=== PATIENT | female | born 1940 | race Caucasian/White ===

== ENCOUNTER 2017-05-19 23:10 | Emergency (ER) | payer MEDICARE ==
[~2017-05-19] VITALS: Ht 165.1 cm; Wt 66.0 kg
[2017-05-19] MEDS ORDERED: aspirin 81mg tab.chew PO ONE (23:30)
[2017-05-19] MEDS ORDERED: clopidogrel 300mg tablet PO ONE (23:45)
[2017-05-19] MEDS ORDERED: clopidogrel 75mg tablet PO ONE (23:50)
[2017-05-19 23:57] LABS: BASOPHILS % (AUTO) 0.3 % (0-1); EOSINOPHILS # (AUTO) 0.1 X10'3 (0-0.9); EOSINOPHILS % (AUTO) 1.8 % (0-6); HEMATOCRIT 44.1 % (35.0-45.0); HEMOGLOBIN 14.9 g/dl (12.0-16.0); LYMPHOCYTES # (AUTO) 1.3 X10'3 (1.1-4.8); LYMPHOCYTES % (AUTO) 18.1 % (21-51); MEAN CORPUSCULAR HEMOGLOBIN 30.8 PG (27.0-31.0); MEAN CORPUSCULAR HGB CONC 33.8 % (33.0-36.5); MEAN CORPUSCULAR VOLUME 91.3 FL (78-98); MEAN PLATELET VOLUME 7.9 FL (7.4-10.4); MONOCYTES # (AUTO) 0.6 X10'3 (0-0.9); MONOCYTES % (AUTO) 8.9 % (2-12); NEUTROPHILS # (AUTO) 5.2 X10'3 (1.8-7.7); NEUTROPHILS % (AUTO) 70.9 % (42-75); PLATELET COUNT 161 X10'3 (140-440); RED BLOOD COUNT 4.83 X10'6 (4.20-5.60); RED CELL DISTRIBUTION WIDTH 14.4 % (11.5-14.5); WHITE BLOOD COUNT 7.3 X10'3 (4.5-11.0)
[2017-05-20 00:19] LABS: ALANINE AMINOTRANSFERASE 29 U/L (12-78); ALBUMIN 3.8 G/DL (3.4-5.0); ALBUMIN/GLOBULIN RATIO 1.2 (1.1-1.5); ALKALINE PHOSPHATASE 88 IU/L (46-116); ANION GAP 9 (8-16); ASPARTATE AMINO TRANSFERASE 17 U/L (10-37); BILIRUBIN,TOTAL 0.8 MG/DL (0.1-1.0); BLOOD UREA NITROGEN 25 MG/DL (7-18); BUN/CREATININE RATIO 20.8 (6.6-38.0); CALCIUM 8.7 MG/DL (8.5-10.1); CHLORIDE 107 MMOL/L (99-107); GLUCOSE 109 MG/DL (70-104); SODIUM 142 MMOL/L (135-145); TOTAL CARBON DIOXIDE 26.5 MMOL/L (24-32); TOTAL PROTEIN 6.9 G/DL (6.4-8.2); eGFR 44 ML/MIN
[2017-05-20] MEDS ORDERED: iohexol 300mg/ml 100ml inj. ONE (00:22)
[2017-05-20 01:54] LABS: CLARITY,URINE CLEAR (Clear); COLOR,URINE YELLOW (Yellow); GLUCOSE, URINE NEGATIVE (Neg); KETONES,URINE NEGATIVE (Neg); LEUKOCYTE ESTERASE ,URINE NEGATIVE (Neg); NITRITES, URINE NEGATIVE (Neg); OCCULT BLOOD,URINE MODERATE (Neg); PH,URINE 5.5 (4.8-8.0); PROTEIN,URINE NEGATIVE (Neg); UROBILINOGEN,URINE 0.2 E.U/dL (0.2-1.0)
[2017-05-20] MEDS ORDERED: ROBDML PO (01:58)
[2017-05-20] MEDS ORDERED: AZIT250T PO (01:58)
[2017-05-20 01:59] LABS: UA COLLECTION TYPE CLN CATCH MIDSTREAM
[2017-05-20 02:15] LABS: BACTERIA,URINE FEW /HPF (Neg); MUCUS STRANDS MODERATE /LPF (Neg); SQUAMOUS EPITHELIAL CELL,UR MODERATE /LPF (FEW); WBC,URINE 0-4 /HPF (0-4)
[2017-05-20 02:16] VITALS: BP 124/71
== END 2017-05-20 02:20 | disposition home or self-care (01) ==
LOC: ER 23:11
DX: J20.9 Acute bronchitis, unspecified (principal); K21.9 Gastro-esophageal reflux disease without esophagitis; Z87.891 Personal history of nicotine dependence; Z88.0 Allergy status to penicillin; Z88.2 Allergy status to sulfonamides; Z88.5 Allergy status to narcotic agent; Z88.1 Allergy status to other antibiotic agents; Z79.899 Other long term (current) drug therapy
CPT/HCPCS: 36415; 71045; 71250; 80053; 81001; 83605; 84484; 85025; 87040; 87502; 87503; 93005; 99285; J7030; Q9967

== ENCOUNTER 2017-11-28 20:32 | Emergency (ER) | payer MEDICARE ==
[~2017-11-28] VITALS: Ht 162.6 cm; Wt 66.4 kg
[~2017-11-28 20:32] MED LIST: AZIT250T PO; ROBDML PO
[2017-11-28 21:00] VITALS: BP 146/98
[2017-11-28] MEDS ORDERED: ESOM20CA PO (21:06)
[2017-11-28] MEDS ORDERED: acetaminophen 325mg tablet PO ONE ×2 (21:50)
[2017-11-28] MEDS ORDERED: ketorolac trometh inj. 60 MG/2 ML VIAL IM ONE (21:50)
[2017-11-28] MEDS ORDERED: LIDOcaine 1% 30ml preserv. free vial IJ ONE (22:05)
[2017-11-28] MEDS ORDERED: CYCL-1 PO (22:06)
[2017-11-28] MEDS ORDERED: LIDO700A32 TOP (22:06)
[2017-11-28] MEDS ORDERED: ACET-812 PO (22:06)
== END 2017-11-28 22:18 | disposition home or self-care (01) ==
LOC: ER 20:33
DX: M54.5 Low back pain (principal); G89.29 Other chronic pain; K21.9 Gastro-esophageal reflux disease without esophagitis; Z98.890 Other specified postprocedural states; Z88.0 Allergy status to penicillin; Z88.2 Allergy status to sulfonamides; Z88.5 Allergy status to narcotic agent; Z88.1 Allergy status to other antibiotic agents; Z88.8 Allergy status to other drugs, medicaments and biological substances; Z79.899 Other long term (current) drug therapy
CPT/HCPCS: 64450; 96372; 99284; J1885

== ENCOUNTER 2019-02-04 08:23 | Emergency (ER) | payer MEDICARE ==
[~2019-02-04] VITALS: Ht 165.1 cm; Wt 61.4 kg
[~2019-02-04 08:23] MED LIST changes: -AZIT250T PO; +CYCL-1 PO; +ESOM20CA PO; +LIDO700A32 TOP; -ROBDML PO
[2019-02-04] MEDS ORDERED: CYCL-1 PO (08:41)
[2019-02-04] MEDS ORDERED: orphenadrine citrate 60mg/2ml inj. IM ONE (08:45)
[2019-02-04 09:36] VITALS: BP 168/99
== END 2019-02-04 09:44 | disposition home or self-care (01) ==
LOC: ER 08:23
DX: M43.6 Torticollis (principal); M62.838 Other muscle spasm; K21.9 Gastro-esophageal reflux disease without esophagitis; G89.29 Other chronic pain; Z88.0 Allergy status to penicillin; Z88.2 Allergy status to sulfonamides; Z88.6 Allergy status to analgesic agent; Z88.8 Allergy status to other drugs, medicaments and biological substances; Z79.899 Other long term (current) drug therapy; Z98.890 Other specified postprocedural states
CPT/HCPCS: 96372; 99283; J2360

== ENCOUNTER 2019-02-05 01:36 | Emergency (ER) | payer MEDICARE ==
[~2019-02-05] VITALS: Ht 167.6 cm; Wt 62.6 kg
[2019-02-05 01:40] VITALS: BP 143/85
== END 2019-02-05 03:11 | disposition left against medical advice (07) ==
LOC: ER 01:36
DX: M54.2 Cervicalgia (principal); Z53.21 Procedure and treatment not carried out due to patient leaving prior to being seen by health care provider

== ENCOUNTER 2019-03-13 13:22 | Emergency (ER) | payer MEDICARE ==
[~2019-03-13] VITALS: Ht 165.1 cm; Wt 61.4 kg
[2019-03-13 13:55] LABS: BASOPHILS % (AUTO) 0.7 % (0-1); EOSINOPHILS # (AUTO) 0.2 X10'3 (0-0.9); EOSINOPHILS % (AUTO) 3.7 % (0-6); HEMATOCRIT 42.7 % (35.0-45.0); HEMOGLOBIN 14.2 g/dl (12.0-16.0); LYMPHOCYTES # (AUTO) 1.9 X10'3 (1.1-4.8); LYMPHOCYTES % (AUTO) 30.5 % (21-51); MEAN CORPUSCULAR HGB CONC 33.3 g/dL (33.0-36.5); MEAN CORPUSCULAR VOLUME 89.9 FL (78-98); MEAN PLATELET VOLUME 8.5 FL (7.4-10.4); MONOCYTES # (AUTO) 0.4 X10'3 (0-0.9); MONOCYTES % (AUTO) 6.2 % (2-12); NEUTROPHILS # (AUTO) 3.6 X10'3 (1.8-7.7); NEUTROPHILS % (AUTO) 58.9 % (42-75); PLATELET COUNT 208 X10'3 (140-440); RED BLOOD COUNT 4.76 X10'6 (4.20-5.60); RED CELL DISTRIBUTION WIDTH 13.8 % (11.5-14.5); WHITE BLOOD COUNT 6.1 X10'3 (4.5-11.0)
[2019-03-13 14:11] LABS: ALANINE AMINOTRANSFERASE 14 U/L (12-78); ALBUMIN 3.8 G/DL (3.4-5.0); ALBUMIN/GLOBULIN RATIO 1.3 (1.1-1.5); ALKALINE PHOSPHATASE 93 IU/L (46-116); ANION GAP 10 (8-16); ASPARTATE AMINO TRANSFERASE 20 U/L (10-37); BILIRUBIN,TOTAL 0.8 MG/DL (0.1-1.0); BLOOD UREA NITROGEN 16 MG/DL (7-18); BUN/CREATININE RATIO 17.4 (6.6-38.0); CALCIUM 8.5 MG/DL (8.5-10.1); CHLORIDE 106 MMOL/L (99-107); CREATININE 0.92 MG/DL (0.40-0.90); GLUCOSE 127 MG/DL (70-104); POTASSIUM 3.6 MMOL/L (3.5-5.1); SODIUM 139 MMOL/L (135-145); TOTAL CARBON DIOXIDE 22.7 MMOL/L (24-32); TOTAL PROTEIN 6.8 G/DL (6.4-8.2); eGFR 59 ML/MIN
--- NOTE | 2019-03-13 14:42 | NUR ---
PATIENT STATES "I FEEL GREAT, I DON'T NEED TO TAKE UP A BED." ASKED PT TO GET IN GOWN HOWEVER SHE REFUSED. CHARGE NURSE AWARE.
[2019-03-13 15:16] VITALS: BP 124/58
== END 2019-03-13 15:18 | disposition home or self-care (01) ==
LOC: ER 13:22
DX: R07.89 Other chest pain (principal); E86.0 Dehydration; K21.9 Gastro-esophageal reflux disease without esophagitis; G89.29 Other chronic pain; Z98.890 Other specified postprocedural states; Z88.0 Allergy status to penicillin; Z88.2 Allergy status to sulfonamides; Z88.5 Allergy status to narcotic agent; Z88.1 Allergy status to other antibiotic agents; Z79.899 Other long term (current) drug therapy
CPT/HCPCS: 36415; 71045; 80053; 84484; 85025; 93005; 99284

== ENCOUNTER 2019-11-09 09:52 | Emergency (ER) | payer MEDICARE ==
[~2019-11-09] VITALS: Ht 162.6 cm; Wt 61.4 kg
[2019-11-09] MEDS ORDERED: CYCL5TAB PO (10:41)
[2019-11-09 11:39] VITALS: BP 135/71
== END 2019-11-09 11:42 | disposition home or self-care (01) ==
LOC: ER 09:52
DX: M25.511 Pain in right shoulder (principal); M25.541 Pain in joints of right hand; K21.9 Gastro-esophageal reflux disease without esophagitis; G89.29 Other chronic pain; Z88.0 Allergy status to penicillin; Z88.2 Allergy status to sulfonamides; Z88.5 Allergy status to narcotic agent; Z79.899 Other long term (current) drug therapy
CPT/HCPCS: 73030; 73130; 99284

== ENCOUNTER 2020-10-09 14:13 | Emergency (ER) | payer MEDICARE ==
[~2020-10-09] VITALS: Ht 165.1 cm; Wt 61.9 kg
[~2020-10-09 14:13] MED LIST changes: +CYCL5TAB PO
[2020-10-09 14:27] VITALS: BP 145/82
[2020-10-09] MEDS ORDERED: LIDOcaine 1% W/epiNEPHrine 1:200,000 10ml vial IJ ONE (15:30)
[2020-10-09] MEDS ORDERED: TETanus/Pertussis (Acell)/Diphther VAC/PF (Tdap-Adult) 0.5ml syringe IMVAC ONE (15:30)
== END 2020-10-09 16:41 | disposition home or self-care (01) ==
LOC: ER 14:13
DX: S61.412A Laceration without foreign body of left hand, initial encounter (principal); K21.9 Gastro-esophageal reflux disease without esophagitis; G89.29 Other chronic pain; Z20.3 Contact with and (suspected) exposure to rabies; Z98.890 Other specified postprocedural states; Z88.0 Allergy status to penicillin; Z88.2 Allergy status to sulfonamides; Z88.5 Allergy status to narcotic agent; Z88.1 Allergy status to other antibiotic agents; Z88.8 Allergy status to other drugs, medicaments and biological substances; Z79.899 Other long term (current) drug therapy; W54.0XXA Bitten by dog, initial encounter; Y93.89 Activity, other specified; Y92.89 Other specified places as the place of occurrence of the external cause; Y99.8 Other external cause status
CPT/HCPCS: 12002; 73130; 90471; 90715; 99283

== ENCOUNTER 2020-10-12 06:41 | Emergency (ER) | payer MEDICARE ==
[~2020-10-12] VITALS: Ht 162.6 cm; Wt 58.0 kg
[2020-10-12 06:48] VITALS: BP 105/70
[2020-10-12] MEDS ORDERED: metroNIDAZOLE 500mg tablet PO ONE (08:15)
[2020-10-12] MEDS ORDERED: levoFLOXACIN 250mg tablet PO ONE (08:15)
[2020-10-12] MEDS ORDERED: METR-159 PO (08:15)
[2020-10-12] MEDS ORDERED: LEVO500T89 PO (08:15)
== END 2020-10-12 09:16 | disposition home or self-care (01) ==
LOC: ER 06:42
DX: S61.452D Open bite of left hand, subsequent encounter (principal); L08.9 Local infection of the skin and subcutaneous tissue, unspecified; K21.9 Gastro-esophageal reflux disease without esophagitis; G89.29 Other chronic pain; Z88.0 Allergy status to penicillin; Z88.2 Allergy status to sulfonamides; Z88.1 Allergy status to other antibiotic agents; Z88.8 Allergy status to other drugs, medicaments and biological substances; Z79.2 Long term (current) use of antibiotics; Z79.899 Other long term (current) drug therapy; W54.0XXD Bitten by dog, subsequent encounter
CPT/HCPCS: 99283; J3490

== ENCOUNTER 2021-04-19 11:58 | Emergency (ER) | payer MEDICARE ==
[~2021-04-19] VITALS: Ht 165.1 cm; Wt 59.1 kg
--- NOTE | 2021-04-19 12:15 | NUR ---
JOHNATHAN pt condition to dr benítez and asked if he is going to order ct scan for the pt as pe he will order it now.
[2021-04-19 13:37] VITALS: BP 132/81
[2021-04-19] MEDS ORDERED: diazepam 5mg tablet PO ONE ×2 (14:50)
== END 2021-04-19 15:31 | disposition home or self-care (01) ==
LOC: ER 12:00
DX: S00.03XA Contusion of scalp, initial encounter (principal); S09.90XA Unspecified injury of head, initial encounter; G89.29 Other chronic pain; K21.9 Gastro-esophageal reflux disease without esophagitis; Z88.0 Allergy status to penicillin; Z88.2 Allergy status to sulfonamides; Z88.1 Allergy status to other antibiotic agents; Z88.8 Allergy status to other drugs, medicaments and biological substances; Z79.899 Other long term (current) drug therapy; W01.0XXA Fall on same level from slipping, tripping and stumbling without subsequent striking against object, initial encounter; Y93.89 Activity, other specified; Y92.89 Other specified places as the place of occurrence of the external cause; Y99.8 Other external cause status
CPT/HCPCS: 70450; 72125; 99284

== ENCOUNTER 2021-11-22 13:51 | Emergency (ER) | payer MEDICARE | END 2021-11-22 15:49 | disposition left against medical advice (07) | LOC: ER 13:52 | DX: E86.0 Dehydration (principal); Z53.21 Procedure and treatment not carried out due to patient leaving prior to being seen by health care provider ==

== ENCOUNTER → 2023-12-13 | Emergency (ER) | payer MEDICARE ==
[~2023-12-13] VITALS: Ht 160 cm; Wt 55.9 kg
[~2023-12-13] MED LIST changes: +CYCL-394 PO; +DOCU-148 PO; +IBUP-1984 PO; +OXYC-145 PO
[2023-12-13 06:53] VITALS: TEMP 97.8
[2023-12-13] MEDS: ketorolac trometh 30MG/ML vial 30 MG/ML VIAL IM ONE (07:49)
[2023-12-13] MEDS: acetaminophen 325mg tablet PO ONE (07:51)
[2023-12-13 10:14] VITALS: BP 162/89; PULSE 62; RESP 16; O2SAT 99
== END | disposition home or self-care (01) ==
LOC: ER 06:47
DX: S52.571A Other intraarticular fracture of lower end of right radius, initial encounter for closed fracture (principal); S50.11XA Contusion of right forearm, initial encounter; K21.9 Gastro-esophageal reflux disease without esophagitis; G89.29 Other chronic pain; M54.9 Dorsalgia, unspecified; Z88.0 Allergy status to penicillin; Z88.2 Allergy status to sulfonamides; Z79.899 Other long term (current) drug therapy; Z79.1 Long term (current) use of non-steroidal anti-inflammatories (NSAID); Z98.890 Other specified postprocedural states; W18.39XA Other fall on same level, initial encounter; Y93.89 Activity, other specified; Y92.89 Other specified places as the place of occurrence of the external cause; Y99.8 Other external cause status
CPT/HCPCS: 29125; 36415; 73200; 80329; 96372; 99285; J1885; L3908